=== PATIENT | female | born 1965 | race Caucasian/White ===

== ENCOUNTER → 2018-07-30 13:06 | Outpatient (CLI) | payer BC, SELFPAY ==
--- NOTE | 2018-07-30 | DI.US.S_ITS ---
PROCEDURE: US ABDOMEN COMPLETE INDICATIONS: UPPER QUADRANT PAIN TECHNIQUE: Real-time scanning was performed of the abdominal and retroperitoneal organs, with image documentation. COMPARISON: None. FINDINGS: Liver: Liver is normal in size and homogeneous in echotexture. Gallbladder: Sludge and stones are seen within the gallbladder lumen and there is a single 1.6 cm calculus appears fixed within the gallbladder neck. There is no adjacent pericholecystic free fluid but there is tenderness during sonographic palpation of the gallbladder. The gallbladder wall is not abnormally thickened at 2.4 mm. Biliary ducts: Intrahepatic bile ducts are non-dilated. Extrahepatic bile duct caliber measures 5.0 mm. Normal is 6-7 mm or less in diameter, or 10 mm or less post-cholecystectomy. Pancreas: Visualized portions of the pancreas are sonographically normal. Spleen: Spleen is normal in size and homogeneous in echotexture. Kidneys: Kidneys are normal in size and echotexture. Right kidney measures 12.4 cm long; left kidney measures 11.4 cm long. No hydronephrosis or nephrolithiasis. No solid masses. Aorta: Visualized aorta is normal in caliber at less than 3 cm. Iliacs: Proximal common iliac arteries are normal in caliber at less than 2.5 cm. IVC: Intrahepatic inferior vena cava is patent. Miscellaneous: No free abdominal fluid. IMPRESSION: Multiple gallstones are present within the gallbladder, and sludge. A moderately large 1.6 cm calculus is identified as fixed within the gallbladder neck. However, the gallbladder wall is not thickened and there is no adjacent pericholecystic free fluid. During sonographic palpation over the gallbladder there is tenderness. Overall, the appearance is consistent with likelihood of early acute cholecystitis. Dictated by: Yovanny Mcgrath M.D. on 07/30/2018 at 15:29 Approved by: Yovanny Mcgrath M.D. on 07/30/2018 at 15:32
== END ==
PROVIDERS: Visit Provider Physician Assistant
DX: R10.11 Right upper quadrant pain (principal); K82.8 Other specified diseases of gallbladder; K80.80 Other cholelithiasis without obstruction; K80.20 Calculus of gallbladder without cholecystitis without obstruction
CPT/HCPCS: 76700

== ENCOUNTER → 2018-08-02 16:30 | Outpatient (CLI) | payer BC, SELFPAY ==
[2018-08-02 17:42] LABS: Alanine Aminotransferase 32 IU/L (9-52); Albumin 4.5 g/dL (3.5-5.0); Albumin Globulin Ratio 1.7 (1.0-2.8); Alkaline Phosphatase 63 U/L (38-126); Aspartate Aminotransferase 19 IU/L (14-36); BUN Creatinine Ratio 21.4 (6-22); Bilirubin Total 0.3 mg/dL (0.2-1.3); Blood Urea Nitrogen 15 mg/dL (7-17); Calcium 9.7 mg/dL (8.4-10.2); Carbon Dioxide 30 mmol/L (22-32); Chloride 101 mmol/L (98-107); Estimated Glomerular Filt Rate > 60.0 mL/min (>60); Globulin 2.7 g/dL (1.7-4.1); Glucose 98 mg/dL (70-100); HEMOLYSIS < 15 (0-50); Lipase 109 U/L (23-300); Potassium 3.9 mmol/L (3.4-5.1); Sodium 144 mmol/L (137-145); Total Protein 7.2 g/dL (6.3-8.2)
[2018-08-02 18:05] LABS: Add Manual Diff / Slide Review NO; Basophils Percent Auto 0.7 % (0-2); Eosinophils Percent Auto 2.6 % (2-4); Hematocrit 41.2 % (36-46); Lymphocytes Percent Auto 34.1 % (25-40); Mean Corpuscular HGB Conc 33.9 % (30-36); Mean Corpuscular Hemoglobin 29.8 PG (26-34); Monocytes Percent Auto 7.8 % (3-14); Neutrophils Absolute Auto 5000 /uL (3000-5900); Neutrophils Percent Auto 54.8 % (50-75); Platelet Count 393 X10^3/uL (150-400); Red Blood Cell Count 4.68 X10^6/uL (4.0-5.2); White Blood Cell Count 9.2 X10^3/uL (4.5-11.0)
== END ==
PROVIDERS: PCP Internal Medicine; Visit Provider Surgery
DX: K80.20 Calculus of gallbladder without cholecystitis without obstruction (principal)
CPT/HCPCS: 36415; 80053; 83690; 85025

== ENCOUNTER → 2019-04-18 13:44 | Outpatient (CLI) | payer OTHER, SELFPAY ==
[2019-04-18 14:23] LABS: Add Manual Diff / Slide Review NO; Basophils Absolute Auto 100 /uL (0-100); Basophils Percent Auto 0.8 % (0-2); Eosinophils Absolute Auto 100 /uL (0-450); Eosinophils Percent Auto 0.8 % (2-4); Hematocrit 42.1 % (36-46); Hemoglobin 14.6 g/dL (12.0-16.0); Lymphocytes Absolute Auto 1800 /uL (1100-4500); Mean Corpuscular HGB Conc 34.7 % (30-36); Mean Corpuscular Hemoglobin 30.4 PG (26-34); Mean Corpuscular Volume 87.7 fL (80-100); Monocytes Absolute Auto 500 /uL (0-900); Monocytes Percent Auto 6.1 % (3-14); Neutrophils Absolute Auto 5600 /uL (1500-7000); Neutrophils Percent Auto 69.3 % (50-75); Platelet Count 362 X10^3/uL (150-400); White Blood Cell Count 8.1 X10^3/uL (4.5-11.0)
[2019-04-18 14:37] LABS: Alanine Aminotransferase 30 IU/L (9-52); Albumin 4.5 g/dL (3.5-5.0); Albumin Globulin Ratio 1.6 (1.0-2.8); Alkaline Phosphatase 76 U/L (38-126); Aspartate Aminotransferase 23 IU/L (14-36); BUN Creatinine Ratio 21.7 (6-22); Bilirubin Total 0.4 mg/dL (0.2-1.3); Blood Urea Nitrogen 13 mg/dL (7-17); Calcium 9.8 mg/dL (8.4-10.2); Carbon Dioxide 29 mmol/L (22-32); Chloride 104 mmol/L (98-107); Estimated Glomerular Filt Rate > 60.0 mL/min (>60); Globulin 2.9 g/dL (1.7-4.1); Glucose 97 mg/dL (70-100); HEMOLYSIS < 15 (0-50); Potassium 4.5 mmol/L (3.4-5.1); Sodium 143 mmol/L (137-145); Total Protein 7.4 g/dL (6.3-8.2)
== END ==
PROVIDERS: PCP Internal Medicine; Visit Provider Physician Assistant
DX: R42 Dizziness and giddiness (principal)
CPT/HCPCS: 36415; 80053; 85025

== ENCOUNTER 2019-05-09 08:43 | Emergency (ER) | payer OTHER, SELFPAY ==
[2019-05-09 09:06] VITALS: BP 113/65; PULSE 113; RESP 18; TEMP 37.8; O2SAT 97; BMI 26.6
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
[2019-05-09 09:48] LABS: Add Manual Diff / Slide Review NO; Basophils Absolute Auto 100 /uL (0-100); Basophils Percent Auto 0.4 % (0-2); Eosinophils Absolute Auto 0 /uL (0-450); Eosinophils Percent Auto 0.2 % (2-4); Hematocrit 41.4 % (36-46); Hemoglobin 14.2 g/dL (12.0-16.0); Lymphocytes Absolute Auto 1700 /uL (1100-4500); Lymphocytes Percent Auto 11.5 % (25-40); Mean Corpuscular HGB Conc 34.3 % (30-36); Mean Corpuscular Hemoglobin 30.2 PG (26-34); Mean Corpuscular Volume 88.1 fL (80-100); Monocytes Absolute Auto 1300 /uL (0-900); Monocytes Percent Auto 8.6 % (3-14); Neutrophils Absolute Auto 12000 /uL (1500-7000); Neutrophils Percent Auto 79.3 % (50-75); Platelet Count 355 X10^3/uL (150-400); Red Cell Distribution Width 13.7 % (11.6-14.8); White Blood Cell Count 15.1 X10^3/uL (4.5-11.0)
[2019-05-09 09:53] LABS: INR 1.1 (0.9-1.3); Prothrombin Time 12.6 SECONDS (10.1-12.7)
[2019-05-09 09:56] LABS: PTT Partial Thromboplastin Tim 29 SECONDS (26.4-36.2)
[2019-05-09 09:57] LABS: Alanine Aminotransferase 26 IU/L (9-52); Albumin 4.3 g/dL (3.5-5.0); Albumin Globulin Ratio 1.3 (1.0-2.8); Alkaline Phosphatase 82 U/L (38-126); Aspartate Aminotransferase 35 IU/L (14-36); BUN Creatinine Ratio 18.3 (6-22); Bilirubin Total 0.6 mg/dL (0.2-1.3); Blood Urea Nitrogen 11 mg/dL (7-17); Calcium 9.4 mg/dL (8.4-10.2); Carbon Dioxide 27 mmol/L (22-32); Chloride 102 mmol/L (98-107); Estimated Glomerular Filt Rate > 60.0 mL/min (>60); Globulin 3.3 g/dL (1.7-4.1); Glucose 113 mg/dL (70-100); HEMOLYSIS < 15 (0-50); Lipase 53 U/L (23-300); Sodium 140 mmol/L (137-145); Total Protein 7.6 g/dL (6.3-8.2)
[2019-05-09] MEDS: MORPHINE 2 MG/ML INJ IV ×2 (09:57→11:20)
[2019-05-09] MEDS: ONDANSETRON 4 MG/2 ML INJ IV ×2 (09:57→10:24)
[2019-05-09] MEDS: SODIUM CHLORIDE 0.9% 1,000 ML 1000 ML IV (09:57)
[2019-05-09 10:04] VITALS: BP 119/71; PULSE 96; RESP 13; O2SAT 97
--- NOTE | 2019-05-09 10:15 | DI.CT.S_ITS ---
PROCEDURE: CT ABDOMEN PELVIS W CON INDICATIONS: Left lower quadrant pain. History of diverticulitis TECHNIQUE: After the administration of intravenous contrast, 5 mm thick sections acquired from the diaphragm to the symphysis. 5 mm coronal and sagittal reformats were acquired. For radiation dose reduction, the following was used: automated exposure control, adjustment of mA and/or kV according to patient size. COMPARISON: [facility], CT, CT ABDOMEN PELVIS WITH CONTRAST, 12/02/2017, 16:35. , CT, ABDOMEN/PELVIS WITH CONTRAST, 12/16/2017, 21:33. FINDINGS: Image quality: Excellent. ABDOMEN: Lung bases: Lung bases are clear. Heart size is normal. There is a small hiatal hernia. Solid organs: Liver is normal in size and enhancement. Mild intrahepatic biliary dilation is present. Gallbladder contains a gallstone. Common bile duct measures 6 mm, which is within normal limits. Pancreas enhances normally. Spleen is normal in size and enhancement. No adrenal nodules. Kidneys demonstrate normal size and enhancement, without hydronephrosis. Peritoneum and bowel: There are numerous colonic diverticula, most significant in the sigmoid colon. There is colonic wall thickening and pericolonic stranding in sigmoid colon, consistent with acute diverticulitis. There is a small amount of free fluid adjacent to the sigmoid colon. No organized drainable fluid collection to suggest abscess at this time. No free air. small Bowel loops demonstrate normal caliber. Nodes and vessels: No retroperitoneal or mesenteric adenopathy by size criteria. Aorta and inferior vena cava are normal in size. Miscellaneous: No ventral hernias. PELVIS: Genitourinary: Bladder wall thickness is normal. Uterus and ovaries are unremarkable. There is a trace amount of free fluid in the cul-de-sac. Miscellaneous: No inguinal hernias or adenopathy. Bones: No suspicious bony lesions. No vertebral body compression fractures. IMPRESSION: 1. Acute diverticulitis of the sigmoid colon. There is a small amount of free fluid but no organized drainable fluid collections. Colonoscopy may be considered after adequate treatment as colon cancer could have a similar CT appearance. 2. Cholelithiasis. There is mild intrahepatic biliary dilation. Please correlate with serum bilirubin for biliary obstruction. 3. Small hiatal hernia. Dictated by: Oly Valdes M.D. on 05/09/2019 at 9:51 Approved by: Oly Valdes M.D. on 05/09/2019 at 10:07
[2019-05-09 10:28] VITALS: BP 131/76; PULSE 99; RESP 15; O2SAT 98
[2019-05-09 10:48] LABS: Bacteria Urine Occasional (0-1); Culture Indicated Urine Cult Not Indicated; Mucus Urine 1+ (Negative); RBC Urine 1-5/HPF (0-5/HPF); Squamous Epithelial Cell Urine 0-1 /HPF (0-5/HPF); WBC Urine 0-1/HPF (0-5/HPF)
[2019-05-09 11:00] VITALS: BP 116/74; PULSE 94; RESP 19; O2SAT 96
[2019-05-09 12:00] VITALS: BP 114/59; PULSE 94; RESP 18; O2SAT 97
[2019-05-09 12:05] VITALS: BP 121/63; PULSE 93; RESP 18; O2SAT 97
== END 2019-05-09 12:05 | disposition home or self-care (01) ==
PROVIDERS: Emergency Provider Emergency Medicine; PCP Internal Medicine
DX: K57.32 Diverticulitis of large intestine without perforation or abscess without bleeding (principal)
CPT/HCPCS: 36591; 74177; 80053; 81003; 81015; 83690; 85025; 85610; 85730; 96361; 96374; 96375; 96376; 99283; 99285; J2270; J2405; Q9967

== ENCOUNTER → 2019-05-27 16:28 | Outpatient (CLI) | payer OTHER, SELFPAY ==
[2019-05-27 16:58] LABS: Add Manual Diff / Slide Review NO; Basophils Absolute Auto 100 /uL (0-100); Basophils Percent Auto 0.9 % (0-2); Eosinophils Absolute Auto 100 /uL (0-450); Eosinophils Percent Auto 1.2 % (2-4); Hematocrit 42.5 % (36-46); Hemoglobin 14.4 g/dL (12.0-16.0); Lymphocytes Absolute Auto 2900 /uL (1100-4500); Lymphocytes Percent Auto 24.3 % (25-40); Mean Corpuscular Volume 88.3 fL (80-100); Monocytes Absolute Auto 700 /uL (0-900); Monocytes Percent Auto 6.2 % (3-14); Neutrophils Absolute Auto 7900 /uL (1500-7000); Neutrophils Percent Auto 67.4 % (50-75); Platelet Count 447 X10^3/uL (150-400); Red Blood Cell Count 4.81 X10^6/uL (4.0-5.2); Red Cell Distribution Width 13.7 % (11.6-14.8); White Blood Cell Count 11.8 X10^3/uL (4.5-11.0)
[2019-05-27 17:28] LABS: Alanine Aminotransferase 30 IU/L (9-52); Alkaline Phosphatase 87 U/L (38-126); Aspartate Aminotransferase 33 IU/L (14-36); BUN Creatinine Ratio 18.8 (6-22); Bilirubin Total 0.4 mg/dL (0.2-1.3); Blood Urea Nitrogen 15 mg/dL (7-17); Calcium 9.6 mg/dL (8.4-10.2); Carbon Dioxide 31 mmol/L (22-32); Chloride 103 mmol/L (98-107); Estimated Glomerular Filt Rate > 60.0 mL/min (>60); Glucose 117 mg/dL (70-100); HEMOLYSIS < 15 (0-50); Potassium 3.9 mmol/L (3.4-5.1); Sodium 143 mmol/L (137-145)
== END ==
PROVIDERS: PCP Internal Medicine; Visit Provider Internal Medicine
DX: K80.11 Calculus of gallbladder with chronic cholecystitis with obstruction (principal); K57.92 Diverticulitis of intestine, part unspecified, without perforation or abscess without bleeding
CPT/HCPCS: 36415; 80048; 82247; 84075; 84450; 84460; 85025

== ENCOUNTER → 2019-05-30 07:35 | Outpatient (CLI) | payer OTHER, SELFPAY ==
--- NOTE | 2019-05-30 | DI.US.S_ITS ---
PROCEDURE: US ABDOMEN LIMITED INDICATIONS: RIGHT UPPER QUADRANT PAIN; KNOWN CHOLELITHIASIS TECHNIQUE: Real-time scanning was performed of the abdominal and retroperitoneal organs, with image documentation. COMPARISON: None. FINDINGS: Liver: Liver is normal in size and homogeneous in echotexture. Gallbladder: Multiple stones are layered in the gallbladder fundus. A 1.5 mm diameter stone is present within the cystic duct. The gallbladder wall measures 0.9 mm in diameter. No pericholecystic fluid or sonographic Mcgarry sign. Biliary ducts: Intrahepatic bile ducts are non-dilated. Extrahepatic bile duct caliber measures 7.0 mm. Normal is 6-7 mm or less in diameter, or 10 mm or less post-cholecystectomy. Pancreas: Visualized portions of the pancreas are sonographically normal. Spleen: Spleen is normal in size and homogeneous in echotexture. IMPRESSION: 1. Cholelithiasis. No findings to suggest choledocholithiasis or acute cholecystitis. Dictated by: Cynthia Newberry M.D. on 05/30/2019 at 10:44 Approved by: Cynthia Newberry M.D. on 05/30/2019 at 10:45
== END ==
PROVIDERS: PCP Internal Medicine; Visit Provider Internal Medicine
DX: R10.11 Right upper quadrant pain (principal); K80.20 Calculus of gallbladder without cholecystitis without obstruction
CPT/HCPCS: 76705

== ENCOUNTER → 2019-11-28 15:19 | Outpatient (CLI) | payer BC, SELFPAY ==
[2019-11-28 17:01] LABS: Add Manual Diff / Slide Review NO; Basophils Absolute Auto 100 /uL (0-100); Basophils Percent Auto 0.9 % (0-2); Eosinophils Absolute Auto 100 /uL (0-450); Eosinophils Percent Auto 1.5 % (2-4); Hematocrit 40.6 % (36-46); Hemoglobin 13.7 g/dL (12.0-16.0); Lymphocytes Absolute Auto 2700 /uL (1100-4500); Lymphocytes Percent Auto 32.6 % (25-40); Mean Corpuscular HGB Conc 33.8 % (30-36); Mean Corpuscular Hemoglobin 30.1 PG (26-34); Mean Corpuscular Volume 89.2 fL (80-100); Monocytes Absolute Auto 700 /uL (0-900); Neutrophils Absolute Auto 4800 /uL (1500-7000); Platelet Count 393 X10^3/uL (150-400); Red Blood Cell Count 4.55 X10^6/uL (4.0-5.2); Red Cell Distribution Width 13.7 % (11.6-14.8); White Blood Cell Count 8.4 X10^3/uL (4.5-11.0)
[2019-11-28 17:15] LABS: Alanine Aminotransferase 28 IU/L (<35); Albumin 4.3 g/dL (3.5-5.0); Albumin Globulin Ratio 1.3 (1.0-2.8); Alkaline Phosphatase 80 U/L (38-126); Aspartate Aminotransferase 28 IU/L (14-36); BUN Creatinine Ratio 23.2 (6-22); Bilirubin Total 0.2 mg/dL (0.2-1.3); Blood Urea Nitrogen 13 mg/dL (7-17); Calcium 9.3 mg/dL (8.4-10.2); Carbon Dioxide 30 mmol/L (22-32); Chloride 104 mmol/L (98-107); Estimated Glomerular Filt Rate > 60.0 mL/min (>60); Globulin 3.3 g/dL (1.7-4.1); Glucose 94 mg/dL (70-100); HEMOLYSIS < 15 (0-50); Magnesium 1.8 mg/dL (1.6-2.3); Potassium 3.8 mmol/L (3.4-5.1); Sodium 140 mmol/L (137-145); Total Protein 7.6 g/dL (6.3-8.2)
[2019-11-28 18:17] LABS: TSH w/ Reflex to FT4 1.93 uIU/mL (0.47-4.68)
== END ==
PROVIDERS: PCP Internal Medicine; Referring Provider Physician Assistant; Visit Provider Physician Assistant
DX: R00.2 Palpitations (principal)
CPT/HCPCS: 36415; 80053; 83735; 84443; 85025

== ENCOUNTER 2020-02-07 02:12 | Emergency (ER) | payer BC, SELFPAY ==
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
[2020-02-07 02:24] VITALS: BP 146/71; PULSE 76; RESP 18; TEMP 36.4; O2SAT 99; BMI 25.5
--- NOTE | 2020-02-07 02:40 | DI.US.S_ITS ---
PROCEDURE: US PERIPH VENOUS LOW EXTREM RT INDICATIONS: PAIN,NO INJURY,HISTORY OF PE TECHNIQUE: Real-time imaging, as well as color and pulse Doppler interrogation, were performed of the lower extremity deep veins from the inguinal ligament to the popliteal fossa. COMPARISON: None. FINDINGS: The common femoral, femoral and popliteal veins are normally compressible, and free of intraluminal thrombus. Color and pulse Doppler demonstrate normal phasic intraluminal flow. There is normal augmentation response to distal compression maneuver. IMPRESSION: No evidence of deep vein thrombosis involving the right lower extremity. Dictated by: Kaye Anne MD, PhD on 02/07/2020 at 8:18 Approved by: Kaye Anne MD, PhD on 02/07/2020 at 8:22
[2020-02-07 03:06] LABS: Add Manual Diff / Slide Review NO; Basophils Absolute Auto 100 /uL (0-100); Basophils Percent Auto 1.2 % (0-2); Eosinophils Absolute Auto 200 /uL (0-450); Eosinophils Percent Auto 2.2 % (2-4); Hematocrit 41.7 % (36-46); Hemoglobin 14.4 g/dL (12.0-16.0); Lymphocytes Absolute Auto 3400 /uL (1100-4500); Lymphocytes Percent Auto 43.5 % (25-40); Mean Corpuscular HGB Conc 34.5 % (30-36); Mean Corpuscular Hemoglobin 30.3 PG (26-34); Mean Corpuscular Volume 87.8 fL (80-100); Monocytes Absolute Auto 500 /uL (0-900); Monocytes Percent Auto 6.9 % (3-14); Neutrophils Absolute Auto 3600 /uL (1500-7000); Neutrophils Percent Auto 46.2 % (50-75); Platelet Count 318 X10^3/uL (150-400); Red Blood Cell Count 4.75 X10^6/uL (4.0-5.2); Red Cell Distribution Width 13.6 % (11.6-14.8); White Blood Cell Count 7.8 X10^3/uL (4.5-11.0)
[2020-02-07 03:18] LABS: BUN Creatinine Ratio 31.5 (6-22); Blood Urea Nitrogen 17 mg/dL (7-17); Calcium 9.6 mg/dL (8.4-10.2); Carbon Dioxide 30 mmol/L (22-32); Chloride 104 mmol/L (98-107); D Dimer < 200 ng/mL (<230); Estimated Glomerular Filt Rate > 60.0 mL/min (>60); Glucose 98 mg/dL (70-100); HEMOLYSIS < 15 (0-50); Potassium 4.1 mmol/L (3.4-5.1); Sodium 140 mmol/L (137-145)
[2020-02-07 03:56] VITALS: BP 144/65; PULSE 78; RESP 17; O2SAT 96
== END 2020-02-07 03:57 | disposition home or self-care (01) ==
PROVIDERS: Emergency Provider Emergency Medicine; PCP Internal Medicine
DX: M79.651 Pain in right thigh (principal)
CPT/HCPCS: 36415; 80048; 85025; 85379; 86140; 93005; 93971; 99283; 99284

== ENCOUNTER 2020-03-18 04:37 | Emergency (ER) | payer BC, SELFPAY ==
[2020-03-18 04:43] VITALS: BP 128/71; PULSE 77; RESP 16; TEMP 36.9; O2SAT 97; BMI 25.7
[2020-03-18] MEDS: FLUORESCEIN 1 MG STRIP EYE-BOTH (04:49)
[2020-03-18] MEDS: PROPARACAINE 0.5% OPHTH SOL 1 DROPS EYE-BOTH (04:49)
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
[2020-03-18] MEDS: ERYTHROMYCIN OPHTH 1 GM OINT 1 APPLIC EYE-LEFT (05:35)
== END 2020-03-18 05:44 | disposition home or self-care (01) ==
PROVIDERS: Emergency Provider Emergency Medicine; PCP Internal Medicine
DX: H10.89 Other conjunctivitis (principal)
CPT/HCPCS: 99281; 99282

== ENCOUNTER 2020-05-26 22:08 | Emergency (ER) | payer BC, SELFPAY ==
[2020-05-26 22:10] VITALS: BP 161/75; PULSE 105; RESP 18; TEMP 36.6; O2SAT 100; BMI 25.8
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
--- NOTE | 2020-05-26 22:42 | DI.CT.S_ITS ---
PROCEDURE: CT ABDOMEN PELVIS W CON INDICATIONS: hx of diverticulitis completed ABX continued/worsening pain TECHNIQUE: After the administration of intravenous contrast, 5 mm thick sections acquired from the diaphragm to the symphysis. 5 mm coronal and sagittal reformats were acquired. For radiation dose reduction, the following was used: automated exposure control, adjustment of mA and/or kV according to patient size. COMPARISON: [facility], CT, ABDOMEN/PELVIS WITH CONTRAST, 02/27/2016, 1:29. [facility], CT, CT ABDOMEN PELVIS WITH CONTRAST, 12/02/2017, 16:35. [facility], CT, CT ABDOMEN PELVIS W CON, 05/09/2019, 10:38. FINDINGS: Image quality: Excellent. ABDOMEN: Lung bases: Lung bases are clear. Heart size is normal. A small hiatal hernia is incidentally noted. Solid organs: Liver is normal in size and enhancement. Gallbladder is not seen. Biliary system is non dilated for a postcholecystectomy patient. Pancreas enhances normally. Spleen is normal in size and enhancement. Incidental note is made of an accessory splenule along the hilum of the primary spleen. No adrenal nodules. Kidneys demonstrate normal size and enhancement, without hydronephrosis. Peritoneum and bowel: Wall thickening is seen involving the distal descending colon and the proximal sigmoid colon, with surrounding moderate inflammatory change. Moderate diverticula formation can be seen within this region. No definite free air is seen. The loculated fluid collection is seen to suggest abscess. No other areas of bowel wall thickening can be seen. No dilated loops of small bowel are seen. No significant free fluid is seen. Nodes and vessels: No retroperitoneal or mesenteric adenopathy by size criteria. Aorta and inferior vena cava are normal in size. Incidental note is made of a circumaortic left renal vein. Miscellaneous: No ventral hernias. PELVIS: Genitourinary: Bladder wall thickness is normal. Miscellaneous: No inguinal hernias or adenopathy. Bones: No suspicious bony lesions. No vertebral body compression fractures. Focal L5-S1 degenerative change is seen. Milder degenerative changes are seen elsewhere. Minimal dextroconvex thoracolumbar scoliotic curvature is seen. IMPRESSION: Moderate diverticulitis, without fidelina findings of perforation or abscess. When clinically appropriate (following adequate treatment of the patient's current clinical episode) a colonoscopy is recommended for further evaluation for a potential underlying mass (if not already recently done). Incidental note is made of: Small hiatal hernia Cholecystectomy Circumaortic left renal vein Focal L5-S1 degenerative change. Note: No significant discrepancy from the preliminary report. Dictated by: Semaj Padilla M.D. on 05/27/2020 at 7:53 Approved by: Semaj Padilla M.D. on 05/27/2020 at 7:58
[2020-05-26 22:49] LABS: Add Manual Diff / Slide Review NO; Basophils Absolute Auto 100 /uL (0-100); Basophils Percent Auto 0.8 % (0-2); Eosinophils Absolute Auto 100 /uL (0-450); Hematocrit 44.1 % (36-46); Hemoglobin 15.3 g/dL (12.0-16.0); Lymphocytes Absolute Auto 3300 /uL (1100-4500); Lymphocytes Percent Auto 22.8 % (25-40); Mean Corpuscular HGB Conc 34.6 % (30-36); Mean Corpuscular Hemoglobin 30.6 PG (26-34); Mean Corpuscular Volume 88.4 fL (80-100); Monocytes Absolute Auto 900 /uL (0-900); Monocytes Percent Auto 6.5 % (3-14); Neutrophils Absolute Auto 9900 /uL (1500-7000); Neutrophils Percent Auto 68.9 % (50-75); Platelet Count 387 X10^3/uL (150-400); Red Blood Cell Count 4.99 X10^6/uL (4.0-5.2); Red Cell Distribution Width 14.2 % (11.6-14.8); White Blood Cell Count 14.3 X10^3/uL (4.5-11.0)
[2020-05-26] MEDS: HYDROMORPHONE 0.5 MG INJ IV (22:49)
[2020-05-26] MEDS: ONDANSETRON 4 MG/2 ML INJ IV (22:49)
[2020-05-26] MEDS: SODIUM CHLORIDE 0.9% 1,000 ML 1000 ML IV (22:50)
[2020-05-26 22:54] LABS: Alanine Aminotransferase 29 IU/L (<35); Albumin 4.6 g/dL (3.5-5.0); Albumin Globulin Ratio 1.3 (1.0-2.8); Alkaline Phosphatase 94 U/L (38-126); Aspartate Aminotransferase 37 IU/L (14-36); BUN Creatinine Ratio 18.7 (6-22); Bilirubin Total 0.5 mg/dL (0.2-1.3); Blood Urea Nitrogen 14 mg/dL (7-17); Calcium 9.5 mg/dL (8.4-10.2); Carbon Dioxide 33 mmol/L (22-32); Chloride 102 mmol/L (98-107); Estimated Glomerular Filt Rate > 60.0 mL/min (>60); Globulin 3.6 g/dL (1.7-4.1); Glucose 112 mg/dL (70-100); HEMOLYSIS 42 (0-50); Lipase 107 U/L (23-300); Potassium 4.1 mmol/L (3.4-5.1); Sodium 143 mmol/L (137-145); Total Protein 8.2 g/dL (6.3-8.2)
[2020-05-27] MEDS: HYDROCODONE/ACET 5/325 PREPACK 1 BOTTLE MISC (00:16)
[2020-05-27] MEDS: levoFLOXacin 250 MG TABLET 750 MG PO (00:17)
[2020-05-27 00:59] VITALS: BP 106/60; PULSE 64; RESP 17; O2SAT 98
== END 2020-05-27 01:01 | disposition home or self-care (01) ==
PROVIDERS: Emergency Provider Emergency Medicine; PCP Internal Medicine
DX: K57.32 Diverticulitis of large intestine without perforation or abscess without bleeding (principal)
CPT/HCPCS: 36415; 74177; 80053; 83605; 83690; 85025; 96361; 96374; 96375; 99284; J1170; J2405; Q9967

== ENCOUNTER 2020-05-27 04:36 | Emergency (ER) | payer BC, SELFPAY ==
[2020-05-27 04:43] VITALS: BP 149/67; PULSE 113; RESP 20; O2SAT 100; BMI 25.8
[2020-05-27 04:44] VITALS: PULSE 117; O2SAT 100
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
[2020-05-27] MEDS: methylPREDNISolone 125 MG/2 ML VIAL IV (04:54)
[2020-05-27] MEDS: diphenhydrAMINE 50 MG/ML VIAL 25 MG IV (04:54)
[2020-05-27] MEDS: FAMOTIDINE 20 MG/50 ML PIGGYBACK 200 MG IV (04:55)
[2020-05-27 05:00] VITALS: PULSE 94; O2SAT 100
[2020-05-27 05:11] VITALS: BP 133/68; PULSE 92; O2SAT 100
[2020-05-27 05:30] VITALS: BP 120/77
[2020-05-27 06:00] VITALS: BP 103/54; PULSE 86; O2SAT 97
== END 2020-05-27 06:19 | disposition home or self-care (01) ==
PROVIDERS: Emergency Provider Emergency Medicine; PCP Internal Medicine
DX: L50.9 Urticaria, unspecified (principal)
CPT/HCPCS: 36415; 96365; 96375; 99284; J1200; J2930

== ENCOUNTER 2020-05-28 17:27 | Observation (INO) | payer BC, SELFPAY ==
[2020-05-28] VITALS (10 sets, daily range): BP systolic 115–155; BP diastolic 58–76; PULSE 113–135; RESP 16–30; TEMP 36.7–37.7; O2SAT 98–100; BMI 26.6
[2020-05-28] MEDS: EPINEPHrine 1 MG/ML 0.5 MG IM (17:32)
[2020-05-28] MEDS: diphenhydrAMINE 50 MG/ML VIAL 25 MG IV ×2 (17:32→23:42)
[2020-05-28] MEDS: methylPREDNISolone 125 MG/2 ML VIAL IV (17:32)
[2020-05-28] MEDS: FAMOTIDINE 20 MG/50 ML PIGGYBACK 200 MG IV (17:34)
[2020-05-28] MEDS: SODIUM CHLORIDE 0.9% 1,000 ML 1000 ML IV (17:50)
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
--- NOTE | 2020-05-28 20:02 | PC.NURSE ---
\\report given to [facility].
[2020-05-28 20:51] LABS: Add Manual Diff / Slide Review NO; Basophils Absolute Auto 100 /uL (0-100); Basophils Percent Auto 0.5 % (0-2); Eosinophils Absolute Auto 0 /uL (0-450); Hematocrit 38.1 % (36-46); Hemoglobin 12.8 g/dL (12.0-16.0); Lymphocytes Absolute Auto 700 /uL (1100-4500); Mean Corpuscular HGB Conc 33.5 % (30-36); Mean Corpuscular Volume 89.4 fL (80-100); Monocytes Absolute Auto 600 /uL (0-900); Monocytes Percent Auto 3.1 % (3-14); Neutrophils Absolute Auto 17300 /uL (1500-7000); Neutrophils Percent Auto 92.4 % (50-75); Platelet Count 350 X10^3/uL (150-400); Red Blood Cell Count 4.26 X10^6/uL (4.0-5.2); Red Cell Distribution Width 14.4 % (11.6-14.8); White Blood Cell Count 18.7 X10^3/uL (4.5-11.0)
[2020-05-28 21:06] LABS: Albumin 3.9 g/dL (3.5-5.0); Albumin Globulin Ratio 1.3 (1.0-2.8); Alkaline Phosphatase 71 U/L (38-126); Aspartate Aminotransferase 30 IU/L (14-36); BUN Creatinine Ratio 20.3 (6-22); Bilirubin Total 0.3 mg/dL (0.2-1.3); Blood Urea Nitrogen 13 mg/dL (7-17); Calcium 8.9 mg/dL (8.4-10.2); Carbon Dioxide 24 mmol/L (22-32); Chloride 108 mmol/L (98-107); Estimated Glomerular Filt Rate > 60.0 mL/min (>60); Globulin 2.9 g/dL (1.7-4.1); Glucose 143 mg/dL (70-100); HEMOLYSIS < 15 (0-50); Magnesium 1.6 mg/dL (1.6-2.3); Potassium 3.6 mmol/L (3.4-5.1); Sodium 145 mmol/L (137-145); Total Protein 6.8 g/dL (6.3-8.2)
[2020-05-28 21:12] LABS: Alanine Aminotransferase 31 IU/L (<35)
[2020-05-28] MEDS: SODIUM CHLORIDE 0.9% 1,000 ML 75 ML IV (21:15)
[2020-05-28] MEDS: HEPARIN 5,000 UNIT/ML VIAL 5000 UNIT SUBCUT (21:15)
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
[2020-05-28 21:56] LABS: Procalcitonin < 0.05 ng/mL (<0.5)
[2020-05-28 22:11] LABS: COVID19 -Nasal RAPID Negative (Negative)
[2020-05-29 00:04] VITALS: BP 107/59; PULSE 76; RESP 18; TEMP 36.8; O2SAT 96
[2020-05-29] MEDS: TRIMETH/SULFA 160/800 (DS) TABLET 1 TAB PO ×2 (00:39→09:04)
[2020-05-29 05:08] VITALS: BP 106/57; PULSE 76; RESP 16; TEMP 36.4; O2SAT 98
[2020-05-29] MEDS: FAMOTIDINE 20 MG/50 ML PIGGYBACK 200 MG IV (05:26)
--- NOTE | 2020-05-29 06:21 | PC.NURSE ---
[employer] Note-Facial edema, lip and tongued swelling has decreased overnight, patient can speak easier, without slurring, she states that she can tell a big difference. No hives noted, denies puritis, no nausea, no looses stools, hat is in toilet for GI panel. SL except IV Pepcid, 25mg IV Benadryl given once at midnight. PO Bactrim DS also given.
[2020-05-29 07:15] VITALS: BP 140/67; PULSE 69; RESP 16; TEMP 36.4; O2SAT 98
[2020-05-29] MEDS: MESALAMINE 800 MG TABLET.DR PO (09:03)
[2020-05-29] MEDS: HEPARIN 5,000 UNIT/ML VIAL 5000 UNIT SUBCUT (09:03)
[2020-05-29] MEDS: methylPREDNISolone 125 MG/2 ML VIAL 60 MG IV (09:04)
[2020-05-29] MEDS: SODIUM CHLORIDE 0.9% FLUSH 10 ML IV (09:04)
[2020-05-29] MEDS: ASPIRIN EC 81 MG TABLET PO (09:04)
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
== END 2020-05-29 10:33 | disposition home or self-care (01) ==
LOC: ED 19:12 → AC 19:16 → ICU 20:24
PROVIDERS: Admitting Provider Nurse Practitioner Adult Health; Emergency Provider Nurse Practitioner Family; PCP Internal Medicine; Visit Provider Nurse Practitioner Adult Health
DX: T78.3XXA Angioneurotic edema, initial encounter (principal); T50.905A Adverse effect of unspecified drugs, medicaments and biological substances, initial encounter; K57.32 Diverticulitis of large intestine without perforation or abscess without bleeding; R00.2 Palpitations; Z86.711 Personal history of pulmonary embolism; Z11.59 Encounter for screening for other viral diseases
CPT/HCPCS: 36415; 80053; 83735; 84145; 85025; 87635; 87797; 96361; 96365; 96372; 96375; 96376; 99284; G0378; J0171; J1200; J1644; J2930

== ENCOUNTER 2020-05-31 01:55 | Emergency (ER) | payer BC, SELFPAY ==
[2020-05-28 20:09] VITALS: BMI 26.6
[2020-05-31 02:04] VITALS: BP 165/90; PULSE 91; RESP 16; TEMP 36.6; O2SAT 99; BMI 25.8
[2020-05-31] MEDS: FAMOTIDINE 20 MG/50 ML PIGGYBACK 200 MG IV (02:25)
[2020-05-31] MEDS: diphenhydrAMINE 50 MG/ML VIAL 25 MG IV (02:25)
[2020-05-31] MEDS: methylPREDNISolone 125 MG/2 ML VIAL IV (02:25)
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
[2020-05-31 04:25] VITALS: BP 127/81; PULSE 76; RESP 14; O2SAT 95
[2020-05-31 04:51] VITALS: BP 121/64; PULSE 67; RESP 18; O2SAT 97
== END 2020-05-31 04:49 | disposition home or self-care (01) ==
PROVIDERS: Emergency Provider Emergency Medicine; PCP Internal Medicine
DX: L50.9 Urticaria, unspecified (principal)
CPT/HCPCS: 36415; 96374; 96375; 99284; J1200; J2930

== ENCOUNTER → 2020-06-18 10:30 | Outpatient (CLI) | payer BC, SELFPAY ==
[2020-05-28 20:09] VITALS: BMI 26.6
[2020-06-18 11:38] LABS: Erythrocyte Sedimentation Rate 12 MM/HR (0-20)
[2020-06-18 13:27] LABS: Add Manual Diff / Slide Review NO; Basophils Absolute Auto 100 /uL (0-100); Basophils Percent Auto 0.9 % (0-2); Eosinophils Absolute Auto 100 /uL (0-450); Eosinophils Percent Auto 1.7 % (2-4); Hematocrit 40.6 % (36-46); Hemoglobin 13.9 g/dL (12.0-16.0); Lymphocytes Absolute Auto 1800 /uL (1100-4500); Mean Corpuscular HGB Conc 34.1 % (30-36); Mean Corpuscular Hemoglobin 30.7 PG (26-34); Mean Corpuscular Volume 89.9 fL (80-100); Monocytes Absolute Auto 500 /uL (0-900); Neutrophils Absolute Auto 3600 /uL (1500-7000); Neutrophils Percent Auto 59.4 % (50-75); Platelet Count 318 X10^3/uL (150-400); Red Blood Cell Count 4.52 X10^6/uL (4.0-5.2); Red Cell Distribution Width 13.8 % (11.6-14.8)
[2020-06-18 13:37] LABS: C-Reactive Protein Quant 1.5 mg/dL (<1.0)
== END ==
PROVIDERS: PCP Internal Medicine; Referring Provider Allergy & Immunology; Visit Provider Allergy & Immunology
DX: L50.9 Urticaria, unspecified (principal); T78.3XXA Angioneurotic edema, initial encounter
CPT/HCPCS: 36415; 85025; 85651; 86140

== ENCOUNTER → 2020-07-19 09:10 | Outpatient (CLI) | payer BC, SELFPAY ==
[2020-05-28 20:09] VITALS: BMI 26.6
[2020-07-19 10:24] LABS: Erythrocyte Sedimentation Rate 21 MM/HR (0-20)
[2020-07-19 10:30] LABS: C-Reactive Protein Quant 3.1 mg/dL (<1.0)
== END ==
PROVIDERS: PCP Internal Medicine; Referring Provider Allergy & Immunology; Visit Provider Allergy & Immunology
DX: R89.9 Unspecified abnormal finding in specimens from other organs, systems and tissues (principal)
CPT/HCPCS: 36415; 85651; 86140